=== PATIENT | female | born 1960 | race Caucasian/White ===

== ENCOUNTER 2017-12-30 17:10 | Emergency (ER) | payer OTHER ==
[2017-12-30 17:18] VITALS: BP 152/107; PULSE 67; TEMP 98.3; BMI 24.2
--- NOTE | 2017-12-30 17:24 | PDOC ---
Rapid Medical Evaluation Chief Complaint: Redness To Affected Area Time Seen by Provider: 12/30/17 17:21 Medical Evaluation: Allergies Allergy/AdvReac Type Severity Reaction Status Date / Time PEANUT BUTTER AdvReac Uncoded 12/30/17 17:12 Vital Signs Temp Pulse Resp BP Pulse Ox 98.3 F 67 18 152/107 99 12/30/17 17:12 12/30/17 17:12 12/30/17 17:12 12/30/17 17:12 12/30/17 17:12 12/30/17 17:22 Pt c/o: bruising to arms , rt leg and abdomen since awakening this am, on baby asa, hx anemia Pt on brief exam: small purplish ecchymosis to left upper inner arm and rt bicep. No pettechia Pt ordered for: cbc, pt/inr, PTT Discharge Disposition - Diagnosis Bruise - Referrals - Patient Instructions - Post Discharge Activity
--- NOTE | 2017-12-30 18:10 | PDOC ---
History of Present Illness - General Chief Complaint: Redness To Affected Area Stated Complaint: BLOOD CLOT Time Seen by Provider: 12/30/17 17:21 - History of Present Illness Initial Comments: 57-year-old female with a past medical history significant for diabetes hypertension and iron deficiency anemia presents for evaluation of bruising in the left axilla and right arm and left arm times one day. Bruises are atraumatic. 12/30/17 18:06 Past History - Past Medical History Allergies/Adverse Reactions: Allergies Allergy/AdvReac Type Severity Reaction Status Date / Time PEANUT BUTTER AdvReac Uncoded 12/30/17 17:12 Home Medications: Ambulatory Orders Aspirin [ASA -] 81 mg PO DAILY 12/30/17 Anemia: Yes COPD: No Diabetes: Yes HTN: Yes Other medical history: gallstones, vericose viens - Immunization History Immunization Up to Date: Yes - Suicide/Smoking/Psychosocial Hx Smoking History: Current every day smoker Number of Cigarettes Smoked Daily: 20 Information on smoking cessation initiated: No Review of Systems - Review of Systems Integumentary: Yes: See HPI, Bruising All Other Systems: Reviewed and Negative *Physical Exam - Vital Signs Last Vital Signs Temp Pulse Resp BP Pulse Ox 98.3 F 67 18 152/107 99 12/30/17 17:12 12/30/17 17:12 12/30/17 17:12 12/30/17 17:12 12/30/17 17:12 - Physical Exam Comments: HEAD: NC/AT EYES: Conjuntiva clear Ears: Canals and TM's normal NOSE: No d/c THROAT: Moist mucous membrances, oral pharanx clear, uvula midline NECK: Supple without adenopathy CARDIAC: S1 S2 LUNGS: CTA Full and Equal breath sounds ABDOMEN: Soft NT ND MS: Full ROM in all joints without edema NEUROLOGIC: No gross sensory or motor deficits, NVID SKIN: Normal color and temperature there is a purplish area of ecchymosis in the left axilla about 2 cm and a small circumferential area of purplish ecchymosis on the volar aspect of the left forearm 12/30/17 18:07 Medical Decision Making - Medical Decision Making 67-year-old female with 2 atraumatic bruises she is unsure where she got them she is not on any anticoagulation except for baby aspirin antiplatelet therapy I will have her follow-up with her primary care physician for further evaluation and treatment options. There is no emergency intervention needed at this point 12/30/17 18:07 *DC/Admit/Observation/Transfer Diagnosis at time of Disposition: Bruise - Discharge Dispostion Disposition: HOME Condition at time of disposition: Stable Decision to Admit order: No - Referrals Referrals: Jeff Landers [Primary Care Provider] - - Patient Instructions Additional Instructions: Return to the emergency room should symptoms worsen. Otherwise follow up with her primary care physician once 2 days for further evaluation and treatment options. - Post Discharge Activity
== END 2017-12-30 18:14 | disposition home or self-care (01) ==
LOC: JERFT 17:10
DX: S40.021A Contusion of right upper arm, initial encounter (principal); S40.022A Contusion of left upper arm, initial encounter; F17.210 Nicotine dependence, cigarettes, uncomplicated; I10 Essential (primary) hypertension; E11.9 Type 2 diabetes mellitus without complications
CPT/HCPCS: 99281-25